=== PATIENT | female | born 1955 | race Caucasian/White ===

== ENCOUNTER 2018-07-20 09:16 | Emergency (ER) | payer MEDICAID ==
[2018-07-20 09:25] VITALS: BMI 35.2
[2018-07-20 09:28] VITALS: BP 127/83; PULSE 77; RESP 18; TEMP 97.8; O2SAT 98
[2018-07-20 10:25] LABS: HCG,QUALITATIVE URINE NEGATIVE (NEGATIVE)
[2018-07-20 10:27] LABS: SQUAMOUS EPITHIAL 1 /hpf (0-5); URINE BILIRUBIN NEGATIVE (NEGATIVE); URINE BLOOD 1+ (NEGATIVE); URINE CLARITY Hazy (Clear); URINE COLOR Yellow (YELLOW); URINE GLUCOSE (UA) NORMAL (Normal); URINE LEUKOCYTE ESTERASE NEG Leu/uL (Negative); URINE PROTEIN NEGATIVE (NEGATIVE); URINE UROBILINOGEN NORMAL mg/dL (0.2-1.0)
--- NOTE | 2018-07-20 10:41 | C.PDOC ---
History Of Present Illness 63 y/o female presents to the ER complaining of vaginal discharge which has been present for the past few days. Patient states that she has history of recent yeast infection in the past 6 months and she was treated by her PMD. Patient reports that she is not sexually active. Denies having fever,chills, nausea, vomiting, and abdominal pain. Time Seen by Provider: 07/20/18 09:43 Chief Complaint (Nursing): Female Genitourinary History Per: Patient History/Exam Limitations: no limitations Onset/Duration Of Symptoms: Days Current Symptoms Are (Timing): Still Present Severity: Moderate Past Medical History Reviewed: Historical Data, Nursing Documentation, Vital Signs Vital Signs: Last Vital Signs Temp 97.8 F 07/20/18 09:24 Pulse 77 07/20/18 09:24 Resp 18 07/20/18 09:24 BP 127/83 07/20/18 09:24 Pulse Ox 98 07/20/18 09:24 - Medical History PMH: Anemia, Anxiety, Arthritis (left elbow), Asthma, CAD, CVA (x2 ), Depression, HTN, Hypercholesterolemia, Peripheral Edema, Pneumonia Denies: Chronic Kidney Disease Surgical History: Endoscopy, - [facility] Procedures DRAINAGE OF RIGHT BREAST, OPEN APPROACH (02/11/15) EXCISION OF RIGHT BREAST, OPEN APPROACH, DIAGNOSTIC (02/11/15) Family History: States: No Known Family Hx - Social History Hx Tobacco Use: Yes Hx Alcohol Use: No Hx Substance Use: No - Immunization History Hx Tetanus Toxoid Vaccination: No Hx Influenza Vaccination: No Hx Pneumococcal Vaccination: No Review Of Systems Except As Marked, All Systems Reviewed And Found Negative. Constitutional: Negative for: Fever, Chills Gastrointestinal: Negative for: Nausea, Vomiting, Abdominal Pain, Diarrhea Genitourinary: Positive for: Vaginal Discharge. Negative for: Dysuria, Hematuria, Vaginal Bleeding Physical Exam - Physical Exam Appears: No Acute Distress, Other (awake,alert) Skin: Normal Color, Warm, Dry Head: Atraumatic, Normacephalic Eye(s): bilateral: Normal Inspection Nose: Normal Oral Mucosa: Moist Neck: Supple Chest: Symmetrical Cardiovascular: Rhythm Regular Respiratory: Normal Breath Sounds, No Rales, No Rhonchi, No Wheezing Gastrointestinal/Abdominal: Normal Exam, Soft, No Tenderness, No Guarding, No Rebound Pelvic: No Vaginal Bleeding, Vaginal Discharge (minimal whitish discharge), No Cervical Motion Tenderness, Other (no tenderness on bimanual exam, pelvic exam perfomed by TEST CELL TECHNICIAN Rosetta Montalvo) Neurological/Psych: Oriented x3, Normal Speech ED Course And Treatment - Laboratory Results Lab Results: Urine Color Yellow (YELLOW) 07/20/18 10:16 Urine Clarity Hazy (Clear) 07/20/18 10:16 Urine pH 5.0 (5.0-8.0) 07/20/18 10:16 Ur Specific Ullin 1.023 (1.003-1.030) 07/20/18 10:16 Urine Protein Negative mg/dL (NEGATIVE) 07/20/18 10:16 Urine Glucose (UA) Normal mg/dL (Normal) 07/20/18 10:16 Urine Ketones Negative mg/dL (NEGATIVE) 07/20/18 10:16 Urine Blood 1+ (NEGATIVE) H 07/20/18 10:16 Urine Nitrate Negative (NEGATIVE) 07/20/18 10:16 Urine Bilirubin Negative (NEGATIVE) 07/20/18 10:16 Urine Urobilinogen Normal mg/dL (0.2-1.0) 07/20/18 10:16 Ur Leukocyte Esterase Neg Shanti/uL (Negative) 07/20/18 10:16 Urine WBC (Auto) 2 /hpf (0-5) 07/20/18 10:16 Urine RBC (Auto) 7 /hpf (0-3) H 07/20/18 10:16 Ur Squamous Epith Cells 1 /hpf (0-5) 07/20/18 10:16 Urine HCG, Qual Negative (NEGATIVE) 07/20/18 10:16 Urine HCG, Qual Negative (NEGATIVE) 07/20/18 10:16 O2 Sat by Pulse Oximetry: 98 (RA) Pulse Ox Interpretation: Normal Medical Decision Making Medical Decision Making: Plan: --UA --HCG, Qual. Updates: Patient has been discharged with prescription for Monistat and instructed to follow up with [facility]. Disposition Counseled Patient/Family Regarding: Diagnosis, Need For Followup, Rx Given - Disposition Disposition: HOME/ ROUTINE Disposition Time: 10:38 Condition: STABLE Prescriptions: Miconazole/Cleanser 17 On Wipe [Monistat 7 Combination Pack] 1 each VG HS #1 kit Forms: [employer] ([place]i), General Discharge Instructions - POA Present On Arrival: None - Clinical Impression Clinical Impression: Recurrent candidiasis of vagina - Scribe Statement The provider has reviewed the documentation as recorded by the Scribe Mario Hamilton Provider Attestation: All medical record entries made by the Scribe were at my direction and personally dictated by me. I have reviewed the chart and agree that the record accurately reflects my personal performance of the history, physical exam, medical decision making, and the department course for this patient. I have also personally directed, reviewed, and agree with the discharge instructions and disposition.
== END 2018-07-20 10:51 | disposition home or self-care (01) ==
LOC: C.ER 09:16
DX: B37.3 Candidiasis of vulva and vagina (principal); E78.00 Pure hypercholesterolemia, unspecified; I10 Essential (primary) hypertension; I25.10 Atherosclerotic heart disease of native coronary artery without angina pectoris; Z86.73 Personal history of transient ischemic attack (TIA), and cerebral infarction without residual deficits; Z72.0 Tobacco use